=== PATIENT | female | born 1990 | race African-American/Black ===

== ENCOUNTER 2023-07-30 10:29 | Emergency (ER) | payer SELFPAY ==
[2023-07-30] MEDS ORDERED: Morphine 4 MG/ML VIAL ONE (10:58)
[2023-07-30] MEDS ORDERED: Ondansetron PF 4 MG/2 ML Vial ONE (12:24)
== END 2023-07-30 13:01 | disposition home or self-care (01) ==
LOC: CSHERS 10:29
DX: D25.9 Leiomyoma of uterus, unspecified (principal); F17.210 Nicotine dependence, cigarettes, uncomplicated
CPT/HCPCS: 76856; 96374; 96375; J2270; J2405